=== PATIENT | female | born 1960 | race African-American/Black ===

== ENCOUNTER 2016-11-30 16:17 | Emergency (ER) | payer MEDICAID ==
[~2016-11-30] VITALS: Ht 170.2 cm; Wt 158.8 kg
[~2016-11-30 16:17] MED LIST: HYDROCHLOROTH12.5 M2 ORAL; LISINOPRIL5 MG ORAL; METFORMIN HCL500 M1 ORAL
[2016-11-30 17:31] LABS: BASOPHILS % (AUTO) 2.2 % (0.0-2.0); EOSINOPHILS % (AUTO) 1.7 % (0.0-3.0); LYMPHOCYTES % (AUTO) 27.8 % (20.0-45.0); MEAN CORPUSCULAR HEMOGLOBIN 27.6 PG (27.0-31.0); MEAN CORPUSCULAR HGB CONC 31.2 G/DL (32.0-36.0); MEAN CORPUSCULAR VOLUME 88 FL (80-99); MEAN PLATELET VOLUME 7.7 FL (6.5-10.1); MONOCYTES % (AUTO) 6.8 % (1.0-10.0); NEUTROPHILS % (AUTO) 61.5 % (45.0-75.0); PLATELET COUNT 259 K/UL (150-450); RED BLOOD COUNT 4.43 M/UL (4.20-5.40); WHITE BLOOD COUNT 8.5 K/UL (4.8-10.8)
[2016-11-30 17:59] LABS: CALCIUM 9.9 mg/dL (8.6-10.2); CREATININE 1.3 mg/dL (0.5-0.9); GLOMERULAR FILTRATION RATE 51.5 mL/min (>60)
--- NOTE | 2016-11-30 19:41 | Emergency Room Report ---
History of Present Illness General Chief Complaint: Lower Extremity Injury Source: EMS Present Illness HPI Patient states that a few days ago she developed severe pain in her left foot. She states the pain is worse with movement of her ankle and when she bears weight. She denies injury or trauma. She denies fever or chills. She denies nausea or vomiting. She states that the pain also goes up to her knee when she tries to bear weight. She states it also seems swollen. She has no other complaints. Allergies: Coded Allergies: No Known Allergies (Unverified , 11/30/16) Patient History Past Medical History: see triage record, DM, HTN Social History: Denies: alcohol use, drug use, smoking Reviewed Nursing Documentation: PMH: Agreed, PSxH: Agreed Nursing Documentation-PMH Hx Hypertension: Yes Hx Diabetes: Yes Review of Systems All Other Systems: negative except mentioned in HPI Physical Exam Vital Signs Date Time Temp Pulse Resp B/P Pulse Ox O2 Delivery O2 Flow Rate FiO2 11/30/16 16:10 99.1 98 18 152/88 95 Sp02 EP Interpretation: reviewed, normal General Appearance: no apparent distress, alert, GCS 15, non-toxic, obese Head: normocephalic, atraumatic Eyes: bilateral eye PERRL, bilateral eye normal inspection ENT: hearing grossly normal, normal pharynx, no angioedema, normal voice Neck: full range of motion, supple/symm/no masses Respiratory: no respiratory distress, no retraction, no accessory muscle use, speaking full sentences Rectal: deferred Musculoskeletal: back normal, normal range of motion, other - L. foot with some mild ankle swelling. +pain w/ ROM. No erythema or warmth. Neurologic: alert, oriented x3, responsive, motor strength/tone normal, sensory intact, speech normal Psychiatric: judgement/insight normal, memory normal, mood/affect normal, no suicidal/homicidal ideation Skin: normal color, no rash, warm/dry, well hydrated Medical Decision Making Diagnostic Impression: Primary Impression: Arthritis ER Course This patient presents with right foot and ankle pain. This is consistent with arthritis, possibly gout. There is no erythema warmth that would make me concerned for a septic joint. There is also no evidence of DVT within normal venous ultrasound. X-rays unremarkable. The patient is noted to have peripheral artery disease but this appears to be unrelated. The patient has a normal dorsalis pedis pulse. The patient does have an elevated creatinine. I did go ahead and give the patient one dose of Toradol. I am unfortunately limited on outpatient regimens. The patient is not on any narcotics. I will give the patient Tylenol. The patient was placed in an Don wrap. She'll follow closely with her primary care physician. At this time I did not identify an emergency medical condition. The patient was given return precautions and followup instructions. Labs Test 11/30/16 17:05 White Blood Count 8.5 K/UL (4.8-10.8) Red Blood Count 4.43 M/UL (4.20-5.40) Hemoglobin 12.2 G/DL (12.0-16.0) Hematocrit 39.2 % (37.0-47.0) Mean Corpuscular Volume 88 FL (80-99) Mean Corpuscular Hemoglobin 27.6 PG (27.0-31.0) Mean Corpuscular Hemoglobin Concent 31.2 G/DL (32.0-36.0) Red Cell Distribution Width 14.0 % (11.6-14.8) Platelet Count 259 K/UL (150-450) Mean Platelet Volume 7.7 FL (6.5-10.1) Neutrophils (%) (Auto) 61.5 % (45.0-75.0) Lymphocytes (%) (Auto) 27.8 % (20.0-45.0) Monocytes (%) (Auto) 6.8 % (1.0-10.0) Eosinophils (%) (Auto) 1.7 % (0.0-3.0) Basophils (%) (Auto) 2.2 % (0.0-2.0) Sodium Level 144 mEQ/L (135-145) Potassium Level 4.0 mEQ/L (3.4-4.9) Chloride Level 102 mEQ/L (98-107) Carbon Dioxide Level 27 mEQ/L (20-30) Anion Gap 15 (5-15) Blood Urea Nitrogen 26 mg/dL (7-23) Creatinine 1.3 mg/dL (0.5-0.9) Estimat Glomerular Filtration Rate 51.5 mL/min (>60) Glucose Level 103 mg/dL (74-106) Calcium Level 9.9 mg/dL (8.6-10.2) Other X-Ray Diagnostic Results X-Ray ordered: R. foot xray # of Views/Limited Vs Complete: 3 View Interpretation: no fractures, no dislocation Indication: Pain Impression: No acute disease Date Electronically Signed: Nov 30, 2016 Time Electronically Signed: 20:02 Interpreting ER Physician: Kezia CT/MRI/US Diagnostic Results CT/MRI/US Diagnostic Results : Imaging Test Ordered: RLE US Impression Negative for DVT. Last Vital Signs Date Time Temp Pulse Resp B/P Pulse Ox O2 Delivery O2 Flow Rate FiO2 11/30/16 16:10 99.1 98 18 152/88 95 Disposition: HOME, SELF-CARE Condition: Stable Referrals: [facility],REFERRING (PCP) CANDELARIA KATE D.O. Nov 30, 2016 19:41
[2016-11-30] MEDS ORDERED: Ketorolac 60mg Inj IM ONE (19:45)
[2016-11-30] MEDS ORDERED: LIDODERM700 M1 TOPIC (20:06)
[2016-11-30] MEDS ORDERED: ACETAMINOPHEN500 M3 ORAL (20:06)
[2016-11-30 20:35] VITALS: BP 137/61
--- NOTE | 2016-12-01 11:09 | Diagnostic Imaging Report ---
Indications: Right foot pain Technique: 3 views right foot. Findings: Comparison: None No fracture, dislocation, joint space widening , lytic destruction, periosteal reaction , surrounding soft tissue swelling/foreign body/gas, or other acute changes are identified. Spurring emanates from posterior aspect of calcaneus. No other chronic changes are demonstrated. IMPRESSION: No evidence of acute abnormality of the right foot Calcaneal enthesophyte.
--- NOTE | 2016-12-01 13:47 | Diagnostic Imaging Report ---
APPROVED REPORT CPT Code: 62327 Present Symptoms Lower Extremity Pain: Right Comments: R/O DVT Technically difficult study due to vessel depth (mid-thigh and calf area). RIGHT LEG: Venous imaging reveals a patent deep venous system. There is no evidence of thrombus within the femoral, popliteal or tibial segments. The greater saphenous vein is also within normal limits. Doppler indicates normal spontaneous flow within these segments.
== END 2016-11-30 20:20 | disposition home or self-care (01) ==
LOC: EDBD 16:17 → EMR 16:45
DX: M19.071 Primary osteoarthritis, right ankle and foot (principal); I10 Essential (primary) hypertension; E11.9 Type 2 diabetes mellitus without complications
CPT/HCPCS: 36415; 80048; 85025; 93971; 99284